=== PATIENT | male | born 1980 | race African-American/Black ===

== ENCOUNTER 2020-01-21 09:45 | Emergency (ER) | payer SELFPAY ==
[2020-01-21 10:43] LABS: Bilirubin Negative (Negative); Blood, Urine Negative (Negative); Clarity Clear (Clear); Glucose, Urine (Dipstick) Negative (Negative); Ketone, Urine Negative (Negative); Leukocyte Negative (Negative); Nitrite Negative (Negative); Protein, Urine (Dipstick) Negative (Neg-Trace); Urobilinogen 0.2 mg/dL (Less than 2)
== END 2020-01-21 11:00 | disposition home or self-care (01) ==
LOC: BURERS 09:45
DX: M54.5 Low back pain (principal)
CPT/HCPCS: 81003; 99283